=== PATIENT | female | born 1970 | race Caucasian/White ===

== ENCOUNTER 2018-04-05 18:13 | Emergency (ER) | payer BC ==
[2018-04-05] MEDS ORDERED: Acetaminophen/HYDROcodone 325-5 MG Tab PO ONE (20:32)
--- NOTE | 2018-04-07 10:54 | ER ---
DATE SEEN: 04/05/2018 TIME SEEN: The patient was seen at 1946 hours. CHIEF COMPLAINT: This 47-year-old woman comes in with history of dental pain. Tooth #20 pain noted. She has mild carious teeth. This overweight woman is known to have history of overdose in the past. Feel there is some drug use depression. She is currently using temazepam and Klonopin. Temazepam 30 mg, clonazepam 0.5 mg. No history of diabetes, hypertension, asthma, or other serious illnesses. She has mild pain, tooth #20. PHYSICAL EXAMINATION: GENERAL: The patient is alert, moderate distress, overweight. VITAL SIGNS: Blood pressure 130/95, heart rate 89, respirations 19, 99% oxygen saturation, and temperature is 36.5 degrees centigrade. HEENT: The patient's pupils are equal and reactive to light. EOMs normal. Pharynx: Tooth #20 is disrupted crown. Darkened appearance. Gingiva in tender. Any percussion causes marked pain. Pharynx without abnormality otherwise. NECK: Supple. No thyromegaly or mass in the neck. No cervical adenopathy. LUNGS: Clear without rales, rhonchi, or wheezes. HEART: S1, S2. Normal rate and rhythm. ABDOMEN: Soft, increased abdominal girth, nontender. EXTREMITIES: Without edema. ASSESSMENT: 1. #20 carious tooth. Dental block was placed, 2 mL of 2% lidocaine with epinephrine resolved the pain. She was deeply grateful. She was given a prescription for 8 tablets of Vicodin, placed on Amoxil 875 mg b.i.d. Follow up with doctor in a week. Otherwise, make arrangement in the [facility]. Use ice packs currently. 2. Obesity. 3. One pack per day smoker for 30 years. /[id number] CAIO/ROSY
== END 2018-04-05 20:42 | disposition home or self-care (01) ==
LOC: FB.ED 18:13
DX: K02.9 Dental caries, unspecified (principal); E66.9 Obesity, unspecified; F17.210 Nicotine dependence, cigarettes, uncomplicated
CPT/HCPCS: 64400; 99282; A9270-GY

== ENCOUNTER 2018-04-06 14:03 | Inpatient (IN) | payer BC ==
[2018-04-06] MEDS: Naloxone 0.4 MG/ML SDV ONE ×2 (14:15)
[2018-04-06] MEDS ORDERED: Naloxone 0.4 MG/ML SDV IVPUSH STA (14:17)
[2018-04-06] MEDS ORDERED: Sodium Chloride 0.9% 1,000 ML IV SCH (14:45)
[2018-04-06] MEDS ORDERED: Enoxaparin 40 MG/0.4 ML Syringe SUBCUT SCH (17:00)
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
[2018-04-07] MEDS: Acetaminophen 325 MG Tab PO PRN ×2 (04:45→10:33)
[2018-04-07] MEDS ORDERED: traMADol 50 MG Tab PO ONE (07:42)
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
--- NOTE | 2018-04-07 08:23 | PCM.DCSUM1 ---
Discharge Summary - Hospital Course Free Text/Narrative:: Hospital course-we have placed the patient in the hospital in ICU for observation. Poison control course was contacted and they said this would get better with some time and will just watch for the sedation. Patient woke up in the morning. She did tell the nurses that she was more suicidal last 2 weeks. But when I talk to her she denied says she don't remember saying it. She has a history of bipolar she said 12 years ago but it's been off her medicine other than the clonazepam and theTenazepam. She states she described by with a boyfriend and doesn't really remember anything that happened. She says she " blew she'll he took a couple pills to go to sleep. She denies depression, suicidal ideation she says she sleeping well to medication. She does have tooth pain. She had a prescription for hydrocodone and amoxicillin at the drugstore that she's not picked up. Currently not seeing any counselor. Brief History: This is a 47-year-old female patient came in to the ER. Allegedly she had a fight with her boyfriend and then took 11 tablets of 0.5 mg clonazepam 11 tablets of temazepam 30 mg. Poison control was called and they said peak effectively roughly 4 hours. She was admitted as a possible suicidal thinking. Patient does wake up but she is very sedated cannot really answer any questions at this time. - Discharge Data Discharge Date: 04/07/18 Discharge Disposition: Home, Self-Care 01 Condition: Good - Discharge Diagnosis/Problem(s) (1) Overdose SNOMED Code(s): 09488404 ICD Code: T50.901A - POISONING BY UNSP DRUG/MEDS/BIOL SUBST, ACCIDENTAL, INIT Status: Acute Current Visit: Yes (2) Illicit drug use SNOMED Code(s): 984371018 ICD Code: F19.90 - OTHER PSYCHOACTIVE SUBSTANCE USE, UNSPECIFIED, UNCOMPLICATED Status: Acute Current Visit: Yes (3) Tooth pain SNOMED Code(s): 13016240 ICD Code: K08.89 - OTHER SPECIFIED DISORDERS OF TEETH AND SUPPORTING STRUCTURES Status: Acute Current Visit: Yes (4) Pain in tooth SNOMED Code(s): 68241695 ICD Code: K08.89 - OTHER SPECIFIED DISORDERS OF TEETH AND SUPPORTING STRUCTURES Status: Acute Current Visit: Yes - Patient Instructions Diet: Regular Diet as Tolerated Activity: As Tolerated Driving: May Drive Today Showering/Bathing: May Shower Other/Special Instructions: 1. Follow-up with Dr. Gibson Milian in 1 week. 2. I will of the nurse try to set up for her to see a counselor before she leaves today. 3. Set up appointment with a dentist to take care of her tooth pain. 4. The patient has amoxicillin and hydrocodone for her tooth pain at the drugstore. She can pick this up for her tooth pain. - Discharge Plan Home Medications: Home Meds ClonazePAM [KlonoPIN] 0.5 mg PO DAILY 04/06/18 [History] Temazepam 30 mg PO DAILY 04/06/18 [History] Forms: ED Department Discharge Referrals: Gibson Gunderson MD [Primary Care Provider] - - Discharge Summary/Plan Comment DC Time >30 min.: No - Patient Data Vitals - Most Recent: Last Vital Signs Temp 96.8 F 04/07/18 03:30 Pulse 98 04/07/18 03:30 Resp 18 04/07/18 03:30 BP 132/72 04/07/18 03:30 Pulse Ox 95 04/07/18 03:30 Weight - Most Recent: 259 lb 9.6 oz I&O - Last 24 hours: Intake & Output 04/06/18 04/07/18 04/07/18 22:59 06:59 14:59 Output Total 1000 Balance -1000 Lab Results - Last 24 hrs: Laboratory Results - last 24 hr 04/06/18 04/06/18 04/06/18 Range/Units 14:55 15:00 15:00 WBC (4.5-12.0) X10-3/uL RBC (3.23-5.20) x10(6)uL Hgb (11.5-15.5) g/dL Hct (30.0-51.3) % MCV (80-96) fL MCH (27.7-33.6) pg MCHC (32.2-35.4) g/dL RDW (11.5-15.5) % Plt Count (125-369) X10(3)uL MPV (7.4-10.4) fL Neut % (Auto) (46-82) % Lymph % (Auto) (13-37) % Darke % (Auto) (4-12) % Eos % (Auto) (1.0-5.0) % Baso % (Auto) (0-2) % Neut # (Auto) (1.6-8.3) # Lymph # (Auto) (0.6-5.0) # Darke # (Auto) (0.0-1.3) # Eos # (Auto) (0.0-0.8) # Baso # (Auto) (0.0-0.2) # ABG pH 7.31 L (7.35-7.45) ABG pCO2 52 H (35-45) mmHg ABG pO2 92 (83-108) mmHg ABG HCO3 25 (22-26) mmol/L ABG O2 Saturation 96 (96-97) % ABG Base Excess -1.2 (-2-2) Bandar Test passed O2 Delivery Device Nasal cannula Sodium (135-145) mmol/L Potassium (3.5-5.3) mmol/L Chloride (100-110) mmol/L Carbon Dioxide (21-32) mmol/L BUN (7-18) mg/dL Creatinine (0.55-1.02) mg/dL Est Cr Clr Drug Dosing mL/min Estimated GFR (MDRD) (>60) BUN/Creatinine Ratio (9-20) Glucose (80-116) mg/dL Calcium (8.6-10.2) mg/dL Urine Color (YELLOW) Urine Appearance (CLEAR) Urine pH (5.0-6.5) Ur Specific [place] (1.010-1.025) Urine Protein (NEGATIVE) mg/dL Urine Glucose (UA) (NEGATIVE) mg/dL Urine Ketones (NEGATIVE) mg/dL Urine Occult Blood (NEGATIVE) Urine Nitrite (NEGATIVE) Urine Bilirubin (NEGATIVE) Urine Urobilinogen (NEGATIVE) mg/dL Ur Leukocyte Esterase (NEGATIVE) Urine RBC (0) Urine WBC (0) Ur Squamous Epith Cells (NS,R,O) Urine Bacteria (NS) Salicylates (2.8-20.0) mg/dL Urine Opiates Screen (NEGATIVE) Ur Oxycodone Screen (NEGATIVE) Ur Propoxyphene Screen (NEGATIVE) Acetaminophen < 2 L (10-30) ug/mL Ur Barbituates Screen (NEGATIVE) Ur Tricyclics Screen (NEGATIVE) Ur Phencyclidine Scrn (NEGATIVE) Ur Amphetamine Screen (NEGATIVE) Urine MDMA Screen (NEGATIVE) U Benzodiazepines Scrn (NEGATIVE) U Cocaine Metab Screen (NEGATIVE) U Marijuana (THC) Screen (NEGATIVE) Ethyl Alcohol < 0.03 (<0.03) % 04/06/18 04/06/18 04/06/18 Range/Units 15:00 15:40 15:40 WBC 13.0 H (4.5-12.0) X10-3/uL RBC 4.46 (3.23-5.20) x10(6)uL Hgb 13.5 (11.5-15.5) g/dL Hct 39.9 (30.0-51.3) % MCV 89.4 (80-96) fL MCH 30.2 (27.7-33.6) pg MCHC 33.8 (32.2-35.4) g/dL RDW 12.8 (11.5-15.5) % Plt Count 279 (125-369) X10(3)uL MPV 9.4 (7.4-10.4) fL Neut % (Auto) 71.5 (46-82) % Lymph % (Auto) 17.1 (13-37) % Darke % (Auto) 9.9 (4-12) % Eos % (Auto) 1 (1.0-5.0) % Baso % (Auto) 0 (0-2) % Neut # (Auto) 9.3 H (1.6-8.3) # Lymph # (Auto) 2.2 (0.6-5.0) # Darke # (Auto) 1.3 (0.0-1.3) # Eos # (Auto) 0.2 (0.0-0.8) # Baso # (Auto) 0.0 (0.0-0.2) # ABG pH (7.35-7.45) ABG pCO2 (35-45) mmHg ABG pO2 (83-108) mmHg ABG HCO3 (22-26) mmol/L ABG O2 Saturation (96-97) % ABG Base Excess (-2-2) Bandar Test O2 Delivery Device Sodium 139 (135-145) mmol/L Potassium 4.1 (3.5-5.3) mmol/L Chloride 104 (100-110) mmol/L Carbon Dioxide 23 (21-32) mmol/L BUN 11 (7-18) mg/dL Creatinine 0.9 (0.55-1.02) mg/dL Est Cr Clr Drug Dosing 78.79 mL/min Estimated GFR (MDRD) > 60 (>60) BUN/Creatinine Ratio 12.2 (9-20) Glucose 107 (80-116) mg/dL Calcium 8.7 (8.6-10.2) mg/dL Urine Color (YELLOW) Urine Appearance (CLEAR) Urine pH (5.0-6.5) Ur Specific [place] (1.010-1.025) Urine Protein (NEGATIVE) mg/dL Urine Glucose (UA) (NEGATIVE) mg/dL Urine Ketones (NEGATIVE) mg/dL Urine Occult Blood (NEGATIVE) Urine Nitrite (NEGATIVE) Urine Bilirubin (NEGATIVE) Urine Urobilinogen (NEGATIVE) mg/dL Ur Leukocyte Esterase (NEGATIVE) Urine RBC (0) Urine WBC (0) Ur Squamous Epith Cells (NS,R,O) Urine Bacteria (NS) Salicylates 3.3 (2.8-20.0) mg/dL Urine Opiates Screen (NEGATIVE) Ur Oxycodone Screen (NEGATIVE) Ur Propoxyphene Screen (NEGATIVE) Acetaminophen (10-30) ug/mL Ur Barbituates Screen (NEGATIVE) Ur Tricyclics Screen (NEGATIVE) Ur Phencyclidine Scrn (NEGATIVE) Ur Amphetamine Screen (NEGATIVE) Urine MDMA Screen (NEGATIVE) U Benzodiazepines Scrn (NEGATIVE) U Cocaine Metab Screen (NEGATIVE) U Marijuana (THC) Screen (NEGATIVE) Ethyl Alcohol (<0.03) % 04/06/18 04/06/18 Range/Units 16:20 16:20 WBC (4.5-12.0) X10-3/uL RBC (3.23-5.20) x10(6)uL Hgb (11.5-15.5) g/dL Hct (30.0-51.3) % MCV (80-96) fL MCH (27.7-33.6) pg MCHC (32.2-35.4) g/dL RDW (11.5-15.5) % Plt Count (125-369) X10(3)uL MPV (7.4-10.4) fL Neut % (Auto) (46-82) % Lymph % (Auto) (13-37) % Darke % (Auto) (4-12) % Eos % (Auto) (1.0-5.0) % Baso % (Auto) (0-2) % Neut # (Auto) (1.6-8.3) # Lymph # (Auto) (0.6-5.0) # Darke # (Auto) (0.0-1.3) # Eos # (Auto) (0.0-0.8) # Baso # (Auto) (0.0-0.2) # ABG pH (7.35-7.45) ABG pCO2 (35-45) mmHg ABG pO2 (83-108) mmHg ABG HCO3 (22-26) mmol/L ABG O2 Saturation (96-97) % ABG Base Excess (-2-2) Bandar Test O2 Delivery Device Sodium (135-145) mmol/L Potassium (3.5-5.3) mmol/L Chloride (100-110) mmol/L Carbon Dioxide (21-32) mmol/L BUN (7-18) mg/dL Creatinine (0.55-1.02) mg/dL Est Cr Clr Drug Dosing mL/min Estimated GFR (MDRD) (>60) BUN/Creatinine Ratio (9-20) Glucose (80-116) mg/dL Calcium (8.6-10.2) mg/dL Urine Color Yellow (YELLOW) Urine Appearance Slightly cloudy (CLEAR) Urine pH 5.0 (5.0-6.5) Ur Specific [place] 1.005 L (1.010-1.025) Urine Protein Negative (NEGATIVE) mg/dL Urine Glucose (UA) Normal (NEGATIVE) mg/dL Urine Ketones Negative (NEGATIVE) mg/dL Urine Occult Blood Moderate H (NEGATIVE) Urine Nitrite Negative (NEGATIVE) Urine Bilirubin Negative (NEGATIVE) Urine Urobilinogen Normal (NEGATIVE) mg/dL Ur Leukocyte Esterase Negative (NEGATIVE) Urine RBC 0-5 (0) Urine WBC 0-5 (0) Ur Squamous Epith Cells Moderate H (NS,R,O) Urine Bacteria Few H (NS) Salicylates (2.8-20.0) mg/dL Urine Opiates Screen Positive H (NEGATIVE) Ur Oxycodone Screen Negative (NEGATIVE) Ur Propoxyphene Screen Negative (NEGATIVE) Acetaminophen (10-30) ug/mL Ur Barbituates Screen Negative (NEGATIVE) Ur Tricyclics Screen Positive H (NEGATIVE) Ur Phencyclidine Scrn Negative (NEGATIVE) Ur Amphetamine Screen Positive H (NEGATIVE) Urine MDMA Screen Negative (NEGATIVE) U Benzodiazepines Scrn Positive H (NEGATIVE) U Cocaine Metab Screen Negative (NEGATIVE) U Marijuana (THC) Screen Negative (NEGATIVE) Ethyl Alcohol (<0.03) % Med Orders - Current: Current Medications Acetaminophen (Tylenol) 650 mg PO Q4H PRN PRN Reason: Pain (Mild 1-3)/fever Last Admin: 04/07/18 04:45 Dose: 650 mg Enoxaparin Sodium (Lovenox) 40 mg SUBCUT Q24H KELLEE Last Admin: 04/06/18 18:39 Dose: 40 mg Sodium Chloride (Normal Saline) 1,000 mls @ 500 mls/hr IV ASDIRECTED KELLEE Last Admin: 04/06/18 14:15 Dose: 500 mls/hr Discontinued Medications Naloxone HCl (Narcan) Confirm Administered Dose 0.4 mg .ROUTE .STK-MED ONE Stop: 04/06/18 14:18 Last Admin: 04/06/18 14:15 Dose: Not Given Naloxone HCl (Narcan) 0.4 mg IVPUSH ONETIME STA Stop: 04/06/18 14:18 Last Admin: 04/06/18 14:15 Dose: 0.4 mg Tramadol HCl (Ultram) 50 mg PO ONETIME ONE Stop: 04/07/18 07:43 Last Admin: 04/07/18 07:49 Dose: 50 mg
--- NOTE | 2018-04-07 09:30 | ER ---
DATE SEEN: 04/06/2018 EKG REPORT: Sinus rhythm. QT 440. Heart rate 91, borderline T-wave abnormalities with flattening of T-waves. /[id number] CAIO/RSOY
--- NOTE | 2018-04-08 11:22 | ER ---
DATE SEEN: 04/06/2018 TIME SEEN: The patient was seen on arrival. CHIEF COMPLAINT: Drug overdose. HISTORY OF PRESENT ILLNESS: The patient arrived by ambulance. This 47-year-old woman was seen yesterday and documented to have a dental infection, was given a prescription for 10 tablets of Vicodin. She thought perhaps she might overdose since. On discussion with pharmacy, she did not fill this prescription, did not overdose this, but she overdosed on 2 other medicines, 9 tablets of temazepam 30 mg tablet and clonazepam 9 tablets of 0.5 mg. It is assumed she had overdosed approximately around noon. Her sister is here and is only informed to be the patient's sister and notes that she is not close to Wen. The sister's name is Sharita. The patient called between 11:30 to 12:00 A.M. to check on a co- worker who is a friend of Wen Cheema. The co-worker did not show up at work. The patient's sister, Sharita and a co-worker all work together. The sister noted that she had slightly slurred speech, was not making sense and consequently came to the house immediately and called the friend to stop by until she got there. When she arrived, she noted she had slurred speech, was incoherent, and ambulance was called. All 3 of these individuals work at [employer]. The patient was off work today. The co-worker's name was Tao. The co-worker had not shown up for work also. The sister notes that Wen Cheema has had stressful relationship with her on and off and they get into arguments. It was felt that this suicidal gesture occurred secondary to anger and frustration that she is experiencing. The patient's sister notes she is a 2, para 2-0-2. Her children no longer live at home, but are adults. The patient has history of use of alcohol. Weighs approximately 300 pounds. She has a past medical history of drug overdose, illicit drug abuse, and depression. Has allergy to aspirin. Current medications, clonazepam and temazepam. Also did not fill her Vicodin prescription. PRIMARY EXAMINATION: A. Airway protection. The patient has a glottal snoring sound (sister notes that she always has this when she is sleeping). No history of sleep apnea. Does not use CPAP. This is not abnormal. She is 100% oxygen saturation on 2 L. When taken off the oxygen, she still has 96% oxygen saturation. B. Air exchange in lungs noted with glottal prolapsed tongue partially obstructed airway sounds transmitted ot the lung and very audible. This prompted a thought to place a nasal trumpet, however, since the snoring "has been normal" for every time the nurses have seen her and she has normal oxygen saturations, consequently the nasal trumpet was not placed. C. Cardiac, heart rate 93, regular rhythm. Blood pressure 142/71, respirations 19, oxygen saturation 93% on room air, temperature 36.2. Capillary refill is appropriate. Skin is not pink, but is normal color. Not pale. No cyanosis noted. D. The patient mutters indeterminate words. Resulted a [place] scale of 4 for eyes, 2 for verbal and 4 for motor with a score of 10. The patient has muscle tone. She is arousable with pain. She is lying part way onto her side with head elevated. E. Exposure. No evidence for rash, erythema, or petechiae, or purpura, or swelling, or deformity. PHYSICAL EXAMINATION: HEENT: Pupils do reactive to light minimally. They are 3 mm. TMs, normal appearance. Pharynx, mild dry mucosa. Glottal sounds heard with respirations. Chin lift maneuver and jaw thrust maneuver not necessary as she is exchanging air and oxygen saturation is stable. NECK: No bruits. Glottal sounds heard from the tongue prolapsing into the oropharynx. No thyromegaly. No masses. LUNGS: Clear with oropharyngeal sounds transmitted to the lungs. No rales noted in the lungs. HEART: S1, S2. No arrhythmia. ABDOMEN: Soft, marked increased abdominal girth with large panniculus - fatty overhang. EXTREMITIES: Without abnormality. Deep tendon reflexes hypoactive. Cranial nerves not able to follow. Pupils fixed at 3 mm. Minimal reactivity. Does not follow commands. EXTREMITIES: Without deformity. No abrasions, lacerations, ecchymosis, or purpura. Muscle strength 3+/5. LABORATORY DATA: Urine tox screen positive for opiates. Acetaminophen less than 2. Alcohol less than 0.3, for tricyclics, positive for amphetamine, positive for benzodiazepines. Cath specimen performed. Urinalysis, moderate epithelial with few bacteria. Specific gravity 1.005. Complete metabolic panel is normal. ABGs; pH 7.31, pCO2 of 52, pO2 of 92, bicarb 25, base excess -1.2 on nasal cannula 2 L. White count 51968, PMNs 72, lymphs 17, monos 10, hemoglobin 13.5. ASSESSMENT: 1. Drug overdose. 2. Questionable suicidal ideation, indeterminate. The patient impulsively may have used this, but she has been suicidal in the past. 3. Depression. 4. Massive obesity. 5. Mild hypercarbia secondary to decreased respiratory effort. 6. Positive drug screen for opiates, tricyclics, amphetamines, benzodiazepines. 7. History of frequent conjugal stress. 8. History of overdose, illicit drug use in the past and had dental pain, was seen last night, did not fill the prescription for Vicodin. Perhaps she had narcotics at home that she would use to cause the positive for opiates and the urine drug screen. The patient admitted to ICU, status discussed with Dr. Barreto. EMERGENCY ROOM COURSE: The patient gradually progressively improved. She became more responsive, more alert, was cooperative, but lying on her side and still had the effect of sedation of benzodiazepines. Poison Control was called and it was noted that the duration of the Klonopin is up to 1 to 4 hours and the temazepam up to 2 hours. At this point, she has passed the 2 to 3 hours. It was gradually progressing, improving as the effects of benzodiazepines are wearing off. Suicide precaution taken in ICU. Also, the patient had prophylaxis with enoxaparin to prevent potential DVT as she is at risk because of her weight and bedrest associated with ICU. /[id number] CAIO/ROSY WOODARD
== END 2018-04-07 10:50 | disposition home or self-care (01) | DRG 812 ==
LOC: FB.ED 14:03 → FB.ICU 16:58
PROVIDERS: ADMIT Emergency Medicine; ATTEND Family Medicine
DX: T42.4X4A Poisoning by benzodiazepines, undetermined, initial encounter (principal); Y92.009 Unspecified place in unspecified non-institutional (private) residence as the place of occurrence of the external cause; F11.90 Opioid use, unspecified, uncomplicated; F15.90 Other stimulant use, unspecified, uncomplicated; F19.90 Other psychoactive substance use, unspecified, uncomplicated; R06.89 Other abnormalities of breathing; G47.00 Insomnia, unspecified; F41.9 Anxiety disorder, unspecified; Z87.898 Personal history of other specified conditions; Z91.120 Patient's intentional underdosing of medication regimen due to financial hardship; K08.89 Other specified disorders of teeth and supporting structures; E66.01 Morbid (severe) obesity due to excess calories; Z68.38 Body mass index [BMI] 38.0-38.9, adult; Z88.6 Allergy status to analgesic agent
CPT/HCPCS: 36415; 36600; 80048; 80305; 81001; 82803; 85025; 93005; 96361; 96374; 99285; A9270-GY; G0480; J1650; J2310; J7040

== ENCOUNTER 2021-04-15 11:23 | Emergency (ER) | payer BC, MEDICAID ==
[2021-04-15] MEDS ORDERED: traMADol 50 MG Tab PO ONE (11:24)
--- NOTE | 2021-04-15 11:32 | EDM.PDOC ---
ED HPI GENERAL MEDICAL PROBLEM - General Stated Complaint: STOMACH PAIN Time Seen by Provider: 04/15/21 11:30 Source of Information: Reports: Patient History Limitations: Reports: No Limitations - History of Present Illness INITIAL COMMENTS - FREE TEXT/NARRATIVE: 51-year-old female who reports yesterday at approximately noon to 1 PM she was celebrating her birthday and drank a shot of tequila and shortly after this she became very nauseated and had vomiting with multiple episodes of dry heaving. Following this she felt bad" and laid down to rest and took a small nap. At approximately 3:30 PM she awoke and had a cinnamon roll and something to drink and she developed acute onset of right lower quadrant and right flank pain which has basically been present since then. She reports the pain as a sharp pain and it is worse with any movement and she feels that it is better when she is lying down and she is holding some pressure on the area. She has noticed no lumps or masses in her groin or in her lower abdomen. She has had no fevers or chills. There were no antecedent problems. She has had no dysuria or hematuria. No cough. No sore throat. No nasal congestion. She reports that she has not really eaten much since chest today but it did not seem to affect her pain when she did and she has been drinking some fluids but not as much because she feels that she needs to lie down all the time because of her pain. She has had no more nausea or vomiting since the initial nausea and vomiting. She had 3 normal bowel movements yesterday but no bowel movement today. She currently rates her pain as a 6/10 while lying down but it goes up to an 8-9/10 when she is up or when she takes a deep breath or when she moves. It is sharp and nonradiating. There are no other associated signs or symptoms. There are no other modifying factors. Onset: Other (3:30 PM yesterday.) Duration: Constant Location: Reports: Abdomen Quality: Reports: Sharp, Stabbing Severity: Moderate (to severe) Improves with: Reports: Rest, Other (Holding the area with her hand or a pillow.) Worsens with: Reports: Other (Upright position. Taking a deep breath.), Movement Context: Reports: Other (As above.) Associated Symptoms: Reports: No Other Symptoms Treatments MATERIALS SCIENTIST: Reports: Other (see below) (Nothing) Right Abdomen Pain Score (Numeric/FACES): 6 - Related Data Allergies Allergy/AdvReac Type Severity Reaction Status Date / Time aspirin Allergy Abdominal Verified 04/06/18 16:45 Pain Home Meds: Home Meds Sulfamethoxazole/Trimethoprim [Bactrim Ds Tablet] 1 each PO BID 7 Days #14 tablet 04/15/21 [Rx] traMADol [Ultram] 50 mg PO Q6H PRN #8 tab 04/15/21 [Rx] Past Medical History HEENT History: Reports: Impaired Vision, Other (See Below) Other HEENT History: poor dentition Musculoskeletal History: Reports: Back Pain, Chronic Neurological History: Reports: Migraines Psychiatric History: Reports: Anxiety, Depression, Other (See Below) Other Psychiatric History: insomnia Endocrine/Metabolic History: Reports: Obesity/BMI 30+ - Past Surgical History GI Surgical History: Reports: Appendectomy, Cholecystectomy Female Surgical History: Reports: Section (2), Hysterectomy Dermatological Surgical History: Reports: Other (See Below) (Bilateral breast reduction) Social & Family History - Tobacco Use Tobacco Use Status *Q: Current Every Day Tobacco User - Caffeine Use Caffeine Use: Reports: Coffee, Soda, Tea - Alcohol Use Alcohol Use History: Yes Alcohol Use Frequency: Rarely - Living Situation & Occupation 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.) ED ROS GENERAL - Review of Systems Review Of Systems: See Below Constitutional: Reports: No Symptoms HEENT: Reports: No Symptoms Respiratory: Reports: No Symptoms Cardiovascular: Reports: No Symptoms Endocrine: Reports: No Symptoms GI/Abdominal: Reports: Abdominal Pain : Reports: No Symptoms Musculoskeletal: Reports: No Symptoms Skin: Reports: No Symptoms Neurological: Reports: No Symptoms Psychiatric: Reports: No Symptoms Hematologic/Lymphatic: Reports: No Symptoms Immunologic: Reports: No Symptoms ED EXAM, GI/ABD - Physical Exam Exam: See Below Exam Limited By: No Limitations General Appearance: Alert, Moderate Distress, Obese Eyes: Bilateral: Normal Appearance, EOMI Ears: Normal External Exam, Hearing Grossly Normal Nose: Normal Inspection, Normal Mucosa, No Blood Throat/Mouth: Normal Voice, No Airway Compromise, Other (Poor dentition. Somewhat dry mucous membranes.) Head: Atraumatic, Normocephalic Neck: Normal Inspection, Supple, Non-Tender, Full Range of Motion Respiratory/Chest: No Respiratory Distress, Lungs Clear, Normal Breath Sounds, No Accessory Muscle Use, Chest Non-Tender Cardiovascular: Normal Peripheral Pulses, Regular Rate, Rhythm, No Murmur GI/Abdominal Exam: Normal Bowel Sounds, No Mass, Tender (Over the right lower quadrant and right flank.), Other (No hernia noted.) Back Exam: Normal Inspection, Full Range of Motion Extremities: Normal Inspection, Normal Range of Motion, Non-Tender, No Pedal Edema, Normal Capillary Refill Neurological: Alert, Oriented, CN II-XII Intact, Normal Cognition, No Motor/Sensory Deficits Psychiatric: Normal Affect Skin Exam: Warm, Dry, Intact, Normal Color, No Rash Course - Vital Signs Last Recorded V/S: Last Vital Signs Temp 36.6 C 04/15/21 11:33 Pulse 75 04/15/21 11:33 Resp 20 04/15/21 11:33 BP 131/71 04/15/21 11:33 Pulse Ox 97 04/15/21 11:33 - Orders/Labs/Meds Orders: Active Orders 24 hr Category Date Time Status Chest Abdomen Pelvis wo Cont [CT] Stat Exams 04/15/21 11:45 Taken CULTURE URINE [RM] Stat Lab 04/15/21 11:45 Received Sodium Chloride 0.9% [Saline Flush] Med 04/15/21 11:43 Active 10 ml FLUSH ASDIRECTED PRN Peripheral IV Insertion Adult [OM.PC] Routine Oth 04/15/21 11:43 Ordered Medication Orders Sodium Chloride (Sodium Chloride 0.9% 10 Ml Syringe) 10 ml FLUSH ASDIRECTED PRN PRN Reason: Keep Vein Open Labs: Laboratory Tests 04/15/21 04/15/21 04/15/21 Range/Units 11:45 12:05 12:05 WBC 17.1 H (3.0-10.3) x10-3/uL RBC 4.35 (3.60-5.20) x10(6)uL Hgb 13.1 (11.4-15.5) g/dL Hct 39.2 (34.2-48.2) % MCV 90.1 (76.7-100.5) fL MCH 30.0 (23.9-33.9) pg MCHC 33.3 (31.9-34.8) g/dL RDW 13.3 (12.3-16.5) % Plt Count 273 (151-488) x10(3)uL MPV 9.1 (7.1-12.4) fL Add Manual Diff Yes Neutrophils % (Manual) 73 (46-82) % Band Neutrophils % 3 (0-6) % Lymphocytes % (Manual) 17 (13-37) % Monocytes % (Manual) 6 (4-12) % Eosinophils % (Manual) 1 (0-5) % Sodium 139 (135-145) mmol/L Potassium 3.7 (3.5-5.3) mmol/L Chloride 101 (100-110) mmol/L Carbon Dioxide 27 (21-32) mmol/L BUN 10 (7-18) mg/dL Creatinine 1.0 (0.55-1.02) mg/dL Est Cr Clr Drug Dosing TNP Estimated GFR (MDRD) 59 L (>60) BUN/Creatinine Ratio 10.0 (9-20) Glucose 132 H (80-116) mg/dL Calcium 7.8 L (8.6-10.2) mg/dL Total Bilirubin 0.4 (0.1-1.3) mg/dL AST 45 H (5-25) IU/L ALT 38 H (12-36) U/L Alkaline Phosphatase 116 H (56-112) IU/L C-Reactive Protein (0.5-0.9) mg/dL Total Protein 7.4 (6.0-8.0) g/dL Albumin 3.1 L (3.5-5.2) g/dL Globulin 4.3 g/dL Albumin/Globulin Ratio 0.7 Lipase (73-393) U/L Urine Color Yellow (YELLOW) Urine Appearance Slightly cloudy (CLEAR) Urine pH 6.0 (5.0-6.5) Ur Specific [place] 1.020 (1.010-1.025) Urine Protein 30 H (NEGATIVE) mg/dL Urine Glucose (UA) Normal (NORMAL) mg/dL Urine Ketones Negative (NEGATIVE) mg/dL Urine Occult Blood Large H (NEGATIVE) Urine Nitrite Negative (NEGATIVE) Urine Bilirubin Negative (NEGATIVE) Urine Urobilinogen Normal (NEGATIVE) mg/dL Ur Leukocyte Esterase Negative (NEGATIVE) Urine RBC 30-40 H (0-5) Urine WBC 10-20 H (0-5) Ur Squamous Epith Cells Moderate H (NS,R,O) Urine Bacteria Moderate H (NS) 04/15/21 Range/Units 12:05 WBC (3.0-10.3) x10-3/uL RBC (3.60-5.20) x10(6)uL Hgb (11.4-15.5) g/dL Hct (34.2-48.2) % MCV (76.7-100.5) fL MCH (23.9-33.9) pg MCHC (31.9-34.8) g/dL RDW (12.3-16.5) % Plt Count (151-488) x10(3)uL MPV (7.1-12.4) fL Add Manual Diff Neutrophils % (Manual) (46-82) % Band Neutrophils % (0-6) % Lymphocytes % (Manual) (13-37) % Monocytes % (Manual) (4-12) % Eosinophils % (Manual) (0-5) % Sodium (135-145) mmol/L Potassium (3.5-5.3) mmol/L Chloride (100-110) mmol/L Carbon Dioxide (21-32) mmol/L BUN (7-18) mg/dL Creatinine (0.55-1.02) mg/dL Est Cr Clr Drug Dosing Estimated GFR (MDRD) (>60) BUN/Creatinine Ratio (9-20) Glucose (80-116) mg/dL Calcium (8.6-10.2) mg/dL Total Bilirubin (0.1-1.3) mg/dL AST (5-25) IU/L ALT (12-36) U/L Alkaline Phosphatase (56-112) IU/L C-Reactive Protein 1.5 H (0.5-0.9) mg/dL Total Protein (6.0-8.0) g/dL Albumin (3.5-5.2) g/dL Globulin g/dL Albumin/Globulin Ratio Lipase 58 L (73-393) U/L Urine Color (YELLOW) Urine Appearance (CLEAR) Urine pH (5.0-6.5) Ur Specific [place] (1.010-1.025) Urine Protein (NEGATIVE) mg/dL Urine Glucose (UA) (NORMAL) mg/dL Urine Ketones (NEGATIVE) mg/dL Urine Occult Blood (NEGATIVE) Urine Nitrite (NEGATIVE) Urine Bilirubin (NEGATIVE) Urine Urobilinogen (NEGATIVE) mg/dL Ur Leukocyte Esterase (NEGATIVE) Urine RBC (0-5) Urine WBC (0-5) Ur Squamous Epith Cells (NS,R,O) Urine Bacteria (NS) Meds: Medications Generic Name Dose Route Start Last Admin Trade Name Freq PRN Reason Stop Dose Admin Sodium Chloride 10 ml 04/15/21 11:43 Sodium Chloride 0.9% 10 Ml Syringe FLUSH ASDIRECTED PRN Keep Vein Open Discontinued Medications Generic Name Dose Route Start Last Admin Trade Name Freq PRN Reason Stop Dose Admin Hydromorphone HCl 0.5 mg 04/15/21 12:34 04/15/21 12:40 Hydromorphone 2 Mg/Ml Sdv IVPUSH 04/15/21 12:35 0.5 mg ONETIME ONE Administration Sodium Chloride 1,000 mls @ 999 mls/hr 04/15/21 11:44 04/15/21 12:02 Normal Saline IV 04/15/21 12:44 999 mls/hr .BOLUS ONE Administration Ketorolac Tromethamine 15 mg 04/15/21 14:11 04/15/21 14:18 Ketorolac 30 Mg/Ml Sdv IVPUSH 04/15/21 14:12 15 mg ONETIME ONE Administration Morphine Sulfate 4 mg 04/15/21 11:44 04/15/21 12:04 Morphine 4 Mg/Ml Vial IVPUSH 04/15/21 11:45 4 mg ONETIME ONE Administration Ondansetron HCl 4 mg 04/15/21 11:44 04/15/21 12:04 Ondansetron 4 Mg/2 Ml Sdv IVPUSH 04/15/21 11:45 4 mg ONETIME ONE Administration - Radiology Interpretation Free Text/Narrative:: CT scan of chest, abdomen and pelvis without IV contrast showed no acute disease in the chest, abdomen and pelvis. There was tiny and calcified bilateral pulmonary nodules that are likely benign there is a small fat-containing anterior wall hernia there is also mild lymph node prominence in the mediastinum axillary and inguinal regions bilaterally. This needs to be reassessed through the primary provider. This was all per the [facility] radiologist. - Re-Assessments/Exams Free Text/Narrative Re-Assessment/Exam: 04/15/21 14:10: She continues to have some pain in her right lower quadrant and right flank area. The CT scan of her abdomen and pelvis is reassuring. There is nothing to explain her symptoms. Her blood tests shows an elevated white blood cell count 17 point treatment otherwise were unremarkable. This did have some white cells and red cells with bacteria and it was set up for culture. It also had some casts that could represent kidney disease. She will need to have follow-up in regard to this as well. In regard to her abdominal pain, it appears that the pain is due to a musculoskeletal type problem more unlikely. It does not appear to be related to anything of a serious nature. I will give her a take -home pack of tramadol that she can use for pain and she can also use ibuprofen (since which she tolerates okay) and Tylenol. She can also use an abdominal binder as this may help her with her symptoms. In addition, I am going to place her on Bactrim DS to treat for suspected UTI. I have discussed all of the above findings on the CT scan with the patient and the findings from the urinalysis with the patient and recommended that she follow-up with her primary doctor this coming week. The patient is comfortable with this plan for discharge. Departure - Departure Time of Disposition: 14:53 Disposition: Home, Self-Care 01 Condition: Good (Improved) Clinical Impression: Abdominal pain of unknown etiology, Lymphadenopathy UTI (urinary tract infection) Qualifiers: Urinary tract infection type: site unspecified Hematuria presence: with hematuria Qualified Code(s): N39.0 - Urinary tract infection, site not specified; R31.9 - Hematuria, unspecified - Discharge Information Prescriptions: Sulfamethoxazole/Trimethoprim [Bactrim Ds Tablet] 1 each PO BID 7 Days #14 tablet traMADol [Ultram] 50 mg PO Q6H PRN #8 tab PRN Reason: Moderate to severe pain Instructions: Abdominal Pain, Adult, [id number], Lymphadenopathy, Urinary Tract Infection, Adult, [id number] Additional Instructions: Your blood tests are reassuring. Your urine test showed some evidence of infection. It also showed some evidence of kidney disease. The CT scan of your chest, abdomen and pelvis showed nothing in the abdomen or pelvis that could explain your pain. Specifically, there was no evidence of infection. You did have a small hernia but this would not be causing your symptoms. You also had swollen lymph nodes in your chest and in your arm pits and her groin of unclear cause. This and the potential for you having kidney problems will need to be followed up through your primary doctor. In regard to the pain in your abdomen, you do not appear to have anything of a serious nature causing this pain. It is possible that you pulled a muscle when having the violent vomiting and that is the cause of your pain. You could get an abdominal binder and that may help you with your symptoms You can take ibuprofen and Tylenol for your pain as needed. Medication as prescribed for more severe pain (tramadol). I am placing you on an antibiotic to treat for the potential urinary infection. You need to increase your fluid intake. Back to the emergency department for worsening pain, uncontrolled vomiting, fever or any other concerning signs or symptoms. Sepsis Event Note (ED) - Focused Exam Vital Signs: Vital Signs Temp Pulse Resp BP Pulse Ox 04/15/21 11:33 36.6 C 75 20 131/71 97 - My Orders Last 24 Hours: My Active Orders 04/15/21 11:43 Sodium Chloride 0.9% [Saline Flush] 10 ml FLUSH ASDIRECTED PRN Peripheral IV Insertion Adult [OM.PC] Routine 04/15/21 11:45 Chest Abdomen Pelvis wo Cont [CT] Stat CULTURE URINE [RM] Stat - Assessment/Plan Last 24 Hours: My Active Orders 04/15/21 11:43 Sodium Chloride 0.9% [Saline Flush] 10 ml FLUSH ASDIRECTED PRN Peripheral IV Insertion Adult [OM.PC] Routine 04/15/21 11:45 Chest Abdomen Pelvis wo Cont [CT] Stat CULTURE URINE [RM] Stat
[2021-04-15] MEDS ORDERED: Sodium Chloride 0.9% 10 ML Syringe FLUSH PRN (11:43)
[2021-04-15] MEDS ORDERED: Sodium Chloride 0.9% 1,000 ML IV ONE (11:44)
[2021-04-15] MEDS ORDERED: Ondansetron 4 MG/2 ML SDV IVPUSH ONE (11:44)
[2021-04-15] MEDS ORDERED: Morphine 4 MG/ML VIAL IVPUSH ONE (11:44)
[2021-04-15] MEDS ORDERED: HYDROmorphone 2 MG/ML SDV IVPUSH ONE (12:34)
[2021-04-15] MEDS ORDERED: Ketorolac 30 MG/ML SDV IVPUSH ONE (14:11)
== END 2021-04-15 15:15 | disposition home or self-care (01) ==
LOC: FB.ED 11:23
DX: N39.0 Urinary tract infection, site not specified (principal); R31.9 Hematuria, unspecified; R59.0 Localized enlarged lymph nodes; E66.9 Obesity, unspecified; Z88.6 Allergy status to analgesic agent; Z72.0 Tobacco use
CPT/HCPCS: 36415; 71250; 74176; 80053; 81001; 83690; 85025; 86140; 87086; 96374; 96375; 99284; A9270; J1170; J1885; J2270; J2405; J7030

== ENCOUNTER 2022-03-02 18:10 | Emergency (ER) | payer BC, MEDICAID ==
[2022-03-02] MEDS ORDERED: Tamsulosin 0.4 MG Cap.ER PO ONE (18:42)
[2022-03-02] MEDS ORDERED: Ketorolac 30 MG/ML SDV IM ONE (18:43)
[2022-03-02] MEDS ORDERED: Cyclobenzaprine 10 MG Tab PO ONE (18:43)
== END 2022-03-02 20:15 | disposition home or self-care (01) ==
LOC: FB.ED 18:10
DX: N28.1 Cyst of kidney, acquired (principal); R31.9 Hematuria, unspecified; M62.830 Muscle spasm of back; F12.90 Cannabis use, unspecified, uncomplicated; E66.9 Obesity, unspecified; Z88.8 Allergy status to other drugs, medicaments and biological substances; Z72.0 Tobacco use; Z68.42 Body mass index [BMI] 45.0-49.9, adult
CPT/HCPCS: 74176; 80307; 81001; 96372; 99284; 99284-25; A9270-GY; J1885

== ENCOUNTER 2022-08-12 11:57 | Emergency (ER) | payer MEDICAID ==
[2022-08-12] MEDS ORDERED: Sodium Chloride 0.9% 10 ML Syringe FLUSH PRN (12:12)
[2022-08-12] MEDS ORDERED: Ketorolac 30 MG/ML SDV IVPUSH ONE (12:13)
[2022-08-12] MEDS ORDERED: Iopamidol 755 Mg/ML 100 ML Bottle IV ONE (13:17)
== END 2022-08-12 14:55 | disposition home or self-care (01) ==
LOC: FB.ED 11:57
DX: U07.1 COVID-19 (principal); R09.1 Pleurisy; E66.9 Obesity, unspecified; Z68.31 Body mass index [BMI] 31.0-31.9, adult; Z79.899 Other long term (current) drug therapy
CPT/HCPCS: 71275; 96374; 99285; J1885; Q9967

== ENCOUNTER 2023-08-04 08:10 | Day surgery (SDC) | payer MEDICAID ==
[2023-08-04] MEDS ORDERED: Propofol 200 MG/20 ML SDV IV ONE (08:11)
[2023-08-04] MEDS ORDERED: Sodium Chloride 0.9% 10 ML Syringe FLUSH PRN (08:15)
[2023-08-04] MEDS ORDERED: Lactated Ringers 1,000 ML IV SCH (08:15)
[2023-08-04] MEDS ORDERED: Simethicone Drops 40 MG/0.6 ML 30 ML Bottle PO ONE (10:10)
== END 2023-08-04 11:30 | disposition home or self-care (01) ==
LOC: FB.SDS 08:10
PROVIDERS: ATTEND Surgery
DX: Z12.11 Encounter for screening for malignant neoplasm of colon (principal); G47.30 Sleep apnea, unspecified; F17.210 Nicotine dependence, cigarettes, uncomplicated; E66.01 Morbid (severe) obesity due to excess calories; Z79.84 Long term (current) use of oral hypoglycemic drugs; Z79.899 Other long term (current) drug therapy; Z88.8 Allergy status to other drugs, medicaments and biological substances; Z90.49 Acquired absence of other specified parts of digestive tract; Z98.890 Other specified postprocedural states; Z68.42 Body mass index [BMI] 45.0-49.9, adult
CPT/HCPCS: 00812; 45378; A9270; J2704; J7120

== ENCOUNTER 2023-12-04 06:00 | Emergency (ER) | payer MEDICAID ==
[2023-12-04] MEDS ORDERED: Sodium Chloride 0.9% 10 ML Syringe FLUSH PRN (06:07)
[2023-12-04] MEDS ORDERED: Nitroglycerin 0.4 MG Tab.SL SL ONE (06:09)
[2023-12-04] MEDS ORDERED: Aspirin 81 MG Tab.Chew PO ONE (06:09)
[2023-12-04 06:25] LABS: BASOPHILS ABSOLUTE AUTO 0.1 x10-3/uL (0.0-0.1); BASOPHILS PERCENT AUTO 0.6 % (0.2-1.5); EOSINOPHILS ABSOLUTE AUTO 0.4 x10-3/uL (0.0-0.8); EOSINOPHILS PERCENT AUTO 3.6 % (0.6-8.1); HEMATOCRIT 40.2 % (34.2-48.2); HEMOGLOBIN 13.2 g/dL (11.4-15.5); LYMPHOCYTES ABSOLUTE AUTO 3.7 x10-3/uL (1.0-4.4); LYMPHOCYTES PERCENT AUTO 31.2 % (18.4-52.1); MEAN CORPUSCULAR HEMOGLOBIN 30.1 pg (23.9-33.9); MEAN CORPUSCULAR HGB CONC 32.9 g/dL (31.9-34.8); MEAN CORPUSCULAR VOLUME 91.6 fL (76.7-100.5); MEAN PLATELET VOLUME 8.9 fL (7.1-12.4); MONOCYTES ABSOLUTE AUTO 0.7 x10-3/uL (0.3-1.0); MONOCYTES PERCENT AUTO 6.1 % (4.4-15.7); NEUTROPHILS PERCENT AUTO 58.5 % (30.8-76.2); PLATELET COUNT,PLT 281 x10(3)uL (151-488); RED BLOOD CELL COUNT 4.39 x10(6)uL (3.60-5.20)
[2023-12-04 06:29] LABS: BLOOD UREA NITROGEN,BUN 8 mg/dL (7-18); CALCIUM 8.7 mg/dL (8.6-10.2); CARBON DIOXIDE,CO2 32 mmol/L (21-32); CHLORIDE,CL 103 mmol/L (100-110); ESTIMATED GFR 68 mL/min (>60); GLUCOSE RANDOM 131 mg/dL (80-116); POTASSIUM,K 3.8 mmol/L (3.5-5.3); SODIUM,NA 139 mmol/L (135-145)
[2023-12-04 06:35] LABS: A/G RATIO 0.7; ALANINE AMINOTRANSFERASE,ALT 29 U/L (12-36); ALBUMIN 3.1 g/dL (3.5-5.2); ALKALINE PHOSPHATASE 142 IU/L (56-112); ASPARTATE AMNIOTRANSFERASE,AST 19 IU/L (5-25); BILIRUBIN TOTAL 0.5 mg/dL (0.1-1.3); PROTEIN TOTAL,TP 7.4 g/dL (6.0-8.0)
[2023-12-04 06:42] LABS: TROPONIN I 11.2 pg/mL (4.0-60.3)
[2023-12-04] MEDS ORDERED: Ondansetron 4 MG/2 ML SDV IVPUSH ONE (07:04)
[2023-12-04] MEDS ORDERED: Ketorolac 30 MG/ML SDV IVPUSH ONE (07:04)
[2023-12-04] MEDS ORDERED: Ondansetron 4 MG Tab.DIS PO ONE (07:08)
[2023-12-04] MEDS ORDERED: Ketorolac 30 MG/ML SDV IM STA (07:08)
[2023-12-04 07:20] LABS: INR 1.03 (1.00-1.24); PROTHROMBIN TIME 10.6 sec (9.0-11.1); PTT,PARTIAL THROMBOPLSTIN TIME 27.6 SECONDS (24.4-33.2)
== END 2023-12-04 07:44 | disposition home or self-care (01) ==
LOC: FB.ED 06:00
DX: R07.81 Pleurodynia (principal); K21.9 Gastro-esophageal reflux disease without esophagitis; E66.9 Obesity, unspecified; Z88.6 Allergy status to analgesic agent; Z68.43 Body mass index [BMI] 50.0-59.9, adult
CPT/HCPCS: 36415; 71045; 80053; 83880; 84484; 85025; 85379; 85610; 85730; 93005; 96372; 99285; J1885; Q0162

== ENCOUNTER 2023-12-29 10:41 | Emergency (ER) | payer MEDICAID ==
[2023-12-29] MEDS ORDERED: Sodium Chloride 0.9% 10 ML Syringe FLUSH PRN (10:58)
[2023-12-29 11:11] LABS: BASOPHILS ABSOLUTE AUTO 0.1 x10-3/uL (0.0-0.1); BASOPHILS PERCENT AUTO 0.8 % (0.2-1.5); EOSINOPHILS ABSOLUTE AUTO 0.2 x10-3/uL (0.0-0.8); EOSINOPHILS PERCENT AUTO 1.8 % (0.6-8.1); HEMATOCRIT 41.1 % (34.2-48.2); LYMPHOCYTES ABSOLUTE AUTO 2.3 x10-3/uL (1.0-4.4); LYMPHOCYTES PERCENT AUTO 24.4 % (18.4-52.1); MEAN CORPUSCULAR HEMOGLOBIN 30.5 pg (23.9-33.9); MEAN CORPUSCULAR VOLUME 89.9 fL (76.7-100.5); MEAN PLATELET VOLUME 9.1 fL (7.1-12.4); MONOCYTES ABSOLUTE AUTO 0.9 x10-3/uL (0.3-1.0); MONOCYTES PERCENT AUTO 9.2 % (4.4-15.7); NEUTROPHILS ABSOLUTE AUTO 6.1 x10-3/uL (1.5-6.3); NEUTROPHILS PERCENT AUTO 63.8 % (30.8-76.2); PLATELET COUNT,PLT 272 x10(3)uL (151-488); RED BLOOD CELL COUNT 4.57 x10(6)uL (3.60-5.20); WHITE BLOOD CELL COUNT,WBC 9.5 x10-3/uL (3.0-10.3)
[2023-12-29 11:17] LABS: BLOOD UREA NITROGEN,BUN 10 mg/dL (7-18); BUN/CREATININE RATIO 11.1 (9-20); CALCIUM 9.2 mg/dL (8.6-10.2); CARBON DIOXIDE,CO2 25 mmol/L (21-32); CHLORIDE,CL 100 mmol/L (100-110); CREATININE 0.9 mg/dL (0.55-1.02); ESTIMATED GFR 77 mL/min (>60); GLUCOSE RANDOM 113 mg/dL (80-116); POTASSIUM,K 3.9 mmol/L (3.5-5.3); SODIUM,NA 135 mmol/L (135-145)
[2023-12-29 11:22] LABS: C-REACTIVE PROTEIN 1.91 mg/dL (<0.50); TROPONIN I 9.5 pg/mL (4.0-60.3)
[2023-12-29 11:23] LABS: A/G RATIO 0.7; ALANINE AMINOTRANSFERASE,ALT 25 U/L (12-36); ALBUMIN 3.2 g/dL (3.5-5.2); ALKALINE PHOSPHATASE 144 IU/L (56-112); ASPARTATE AMNIOTRANSFERASE,AST 33 IU/L (5-25); BILIRUBIN TOTAL 0.7 mg/dL (0.1-1.3); MAGNESIUM 1.8 mg/dL (1.8-2.5); PROTEIN TOTAL,TP 7.6 g/dL (6.0-8.0)
[2023-12-29] MEDS: diphenhydrAMINE 50 MG/ML SDV IVPUSH ONE (11:45)
[2023-12-29] MEDS: Sodium Chloride 0.9% 1,000 ML IV ONE (11:45)
[2023-12-29] MEDS: Prochlorperazine 10 MG/2 ML SDV IVPUSH ONE (11:45)
[2023-12-29 13:15] LABS: BILIRUBIN,URINE NEGATIVE (NEGATIVE); GLUCOSE,URINE NORMAL (NORMAL); KETONES,URINE NEGATIVE (NEGATIVE); LEUKOCYTE ESTERASE,URINE NEGATIVE (NEGATIVE); NITRITE,URINE NEGATIVE (NEGATIVE); OCCULT BLOOD,URINE NEGATIVE (NEGATIVE); PH,URINE 6.5 (5.0-6.5); PROTEIN,URINE NEGATIVE (NEGATIVE); UROBILINOGEN,URINE NORMAL (NEGATIVE)
[2023-12-29 13:19] LABS: APPEARANCE,URINE CLEAR (CLEAR); BACTERIA,URINE FEW (NS); COLOR,URINE YELLOW (YELLOW); SQUAMOUS EPITHELIAL CELLS,UR OCCASIONAL (NS,R,O); WBC,URINE 0-5 (0-5)
[2023-12-29] MEDS: Ketorolac 30 MG/ML SDV IVPUSH ONE (13:48)
== END 2023-12-29 14:09 | disposition home or self-care (01) ==
LOC: FB.ED 10:41
DX: S00.03XA Contusion of scalp, initial encounter (principal); S06.0X1A Concussion with loss of consciousness of 30 minutes or less, initial encounter; E86.0 Dehydration; R11.2 Nausea with vomiting, unspecified; R19.7 Diarrhea, unspecified; R55 Syncope and collapse; E66.9 Obesity, unspecified; Z68.41 Body mass index [BMI] 40.0-44.9, adult; Z87.891 Personal history of nicotine dependence; Z88.6 Allergy status to analgesic agent; J45.909 Unspecified asthma, uncomplicated; Z86.16 Personal history of COVID-19; W18.30XA Fall on same level, unspecified, initial encounter
CPT/HCPCS: 70450; 72125; 72128; 80053; 81001; 82947; 83735; 84484; 85025; 86140; 93005; 93010; 96361; 96374; 96375; 99284; 99284-25; J0780; J1200; J1885; J7030

== ENCOUNTER 2025-02-11 06:55 | Emergency (ER) | payer SELFPAY ==
[2025-02-11] MEDS: Sodium Chloride 0.9% 10 ML Syringe FLUSH PRN (07:33)
[2025-02-11] MEDS: Ketorolac 30 MG/ML SDV IVPUSH ONE (07:33)
[2025-02-11 07:53] LABS: BASOPHILS PERCENT AUTO 0.3 % (0.2-1.5); EOSINOPHILS ABSOLUTE AUTO 0.4 x10-3/uL (0.0-0.8); HEMATOCRIT 41.5 % (34.2-48.2); HEMOGLOBIN 13.9 g/dL (11.4-15.5); LYMPHOCYTES ABSOLUTE AUTO 4.2 x10-3/uL (1.0-4.4); LYMPHOCYTES PERCENT AUTO 35.9 % (18.4-52.1); MEAN CORPUSCULAR HEMOGLOBIN 30.9 pg (23.9-33.9); MEAN CORPUSCULAR HGB CONC 33.5 g/dL (31.9-34.8); MEAN CORPUSCULAR VOLUME 92.4 fL (76.7-100.5); MEAN PLATELET VOLUME 8.7 fL (7.1-12.4); NEUTROPHILS PERCENT AUTO 51.7 % (30.8-76.2); PLATELET COUNT,PLT 261 x10(3)uL (151-488); RED BLOOD CELL COUNT 4.49 x10(6)uL (3.60-5.20); WHITE BLOOD CELL COUNT,WBC 11.6 x10-3/uL (3.0-10.3)
[2025-02-11 08:04] LABS: BILIRUBIN,URINE NEGATIVE (NEGATIVE); GLUCOSE,URINE NORMAL (NORMAL); KETONES,URINE NEGATIVE (NEGATIVE); LEUKOCYTE ESTERASE,URINE NEGATIVE (NEGATIVE); NITRITE,URINE NEGATIVE (NEGATIVE); OCCULT BLOOD,URINE MODERATE (NEGATIVE); PROTEIN,URINE NEGATIVE (NEGATIVE); UROBILINOGEN,URINE NORMAL (NEGATIVE)
[2025-02-11 08:05] LABS: APPEARANCE,URINE CLEAR (CLEAR); COLOR,URINE YELLOW (YELLOW)
[2025-02-11] MEDS: Sodium Chloride 0.9% 1,000 ML IV SCH (08:15)
[2025-02-11 08:20] LABS: BLOOD UREA NITROGEN,BUN 11 mg/dL (7-18); CALCIUM 9.5 mg/dL (8.6-10.2); CARBON DIOXIDE,CO2 29 mmol/L (21-32); CHLORIDE,CL 104 mmol/L (100-110); EST CRCL DRUG DOSING (CG) 58.54 mL/min; ESTIMATED GFR 67 mL/min (>60); GLUCOSE RANDOM 122 mg/dL (80-116); SODIUM,NA 139 mmol/L (135-145)
[2025-02-11 08:21] LABS: BACTERIA,URINE FEW (NS); SQUAMOUS EPITHELIAL CELLS,UR FEW (NS,R,O); WBC,URINE 0-5 (0-5)
[2025-02-11 08:24] LABS: ALANINE AMINOTRANSFERASE,ALT 29 U/L (12-36); ALKALINE PHOSPHATASE 135 IU/L (56-112); ASPARTATE AMNIOTRANSFERASE,AST 13 IU/L (5-25); BILIRUBIN TOTAL 0.3 mg/dL (0.1-1.3)
[2025-02-11] MEDS: Iopamidol 755 Mg/ML 100 ML Bottle IV SCH (08:34)
[2025-02-11 08:38] LABS: A/G RATIO 0.7; ALBUMIN 3.1 g/dL (3.5-5.2); PROTEIN TOTAL,TP 7.7 g/dL (6.0-8.0)
== END 2025-02-11 09:13 | disposition home or self-care (01) ==
LOC: FB.ED 06:55
DX: K65.4 Sclerosing mesenteritis (principal); J45.909 Unspecified asthma, uncomplicated; K21.9 Gastro-esophageal reflux disease without esophagitis; E66.9 Obesity, unspecified; F17.210 Nicotine dependence, cigarettes, uncomplicated; Z68.42 Body mass index [BMI] 45.0-49.9, adult; Z86.16 Personal history of COVID-19; Z90.49 Acquired absence of other specified parts of digestive tract; Z90.710 Acquired absence of both cervix and uterus; Z88.6 Allergy status to analgesic agent; Z79.51 Long term (current) use of inhaled steroids; Z79.899 Other long term (current) drug therapy
CPT/HCPCS: 36415; 74177; 80053; 81001; 83690; 85025; 96374; 99284-25; J1885; J7030; Q9967